=== PATIENT | female | born 1965 | race Two or more races ===

== ENCOUNTER 2023-06-14 19:35 | Inpatient (IN) | payer MEDICAID ==
[~2023-06-14] VITALS: Ht 152.4 cm; Wt 89.7 kg
[~2023-06-14 19:35] MED LIST: ALBUPOW26; ASPI-543 PO; ATEN50TA PO
[2023-06-14 20:10] VITALS: PULSE 53; RESP 15; O2SAT 99
[2023-06-14 20:15] LABS: Hematocrit 38.6 % (36.0-46.0); Hemoglobin 13.3 g/dL (12.2-16.2); Mean Corpuscular Hemoglobin 30.9 pg (28.0-32.0); Mean Corpuscular Hgb Conc. 34.5 g/dL (32.0-36.0); Mean Corpuscular Volume 89.6 fL (80.0-100.0); Red Cell Distribution Width 13.2 % (11.8-14.3); White Blood Cell 9.5 10^3/uL (4.4-10.8)
[2023-06-14 20:19] LABS: Band Neutrophils % (manual) 0; Basophils % (manual) 0 (0.0-2.0); Blast Cells 0; Metamyelocytes % 0; Myelocytes % 0; Promyelocytes % 0; Reactive Lymphocytes 0
[2023-06-14 20:35] LABS: Alanine Aminotransferase 104 U/L (7-40); Alkaline Phosphatase 101 U/L (46-116); Anion Gap 6 (5-15); Aspartate Aminotransferase 62 U/L (13-40); BUN/Creatinine Ratio 19.7 (10.0-20.0); Bilirubin, Total 0.3 mg/dL (0.2-1.0); Blood Urea Nitrogen 12 mg/dL (9-23); Calcium 9.3 mg/dL (8.7-10.4); Carbon Dioxide 25 mmol/L (20-30); Chloride 107 mmol/L (98-107); Glucose 140 mg/dL (74-106); Magnesium 1.9 mg/dL (1.6-2.6); Potassium 3.9 mmol/L (3.5-5.1); Sodium 138 mmol/L (136-145); Total Protein 6.2 g/dL (5.7-8.2)
[2023-06-14] MEDS ORDERED: diphenhdrAMINE HCL 50 MG/1 ML VL IV ONE (20:45)
[2023-06-14 22:03] LABS: Eosinophils % (manual) 16 (0-7); Lymphocytes % (manual) 28 (10.0-50.0); Monocytes % (manual) 8 (0-12); Platelet Estimate Adequate
[2023-06-14] MEDS ORDERED: ATROPINE SULF 0.5 MG/5ML SYR ONE (22:11)
[2023-06-14] MEDS: ATROPINE SULF 1 MG/10ml SYR IV ONE ×3 (22:13→23:07)
[2023-06-14] MEDS ORDERED: IOHEXOL 350 MG/ML 100ML IJ ONE (22:48)
[2023-06-15] VITALS (7 sets, daily range): BP systolic 120–145; BP diastolic 59–90; PULSE 53–65; RESP 18–20; TEMP 97.5–98.2; O2SAT 93–97
[2023-06-15] MEDS ORDERED: HYDROcodone-ACET 10/325MG TAB PO ONE (02:00)
[2023-06-15] MEDS ORDERED: HYDR-4798 PO (02:53)
[2023-06-15] MEDS ORDERED: NITROGLYCERIN 0.4 MG SL TAB SL PRN (03:15)
[2023-06-15] MEDS ORDERED: ONDANSETRON HCL 4 MG/2 ML VIAL IV PRN (03:15)
[2023-06-15] MEDS ORDERED: ACETAMINOPHEN 325 MG TAB PO PRN (03:15)
[2023-06-15 03:30] LABS: Urine Bacteria FEW /hpf (None Seen); Urine Blood Negative /uL (Negative); Urine Clarity Clear (Clear); Urine Color Colorless (Yellow); Urine Protein, UAD Negative (Negative); Urine Specific Gravity 1.035 (1.001-1.035); Urine Urobilinogen Normal (Negative); Urine WBC 1 /hpf (0 - 5)
[2023-06-15] MEDS ORDERED: METO-159 PO (05:40)
[2023-06-15] MEDS ORDERED: CLON0.1T PO (05:40)
[2023-06-15] MEDS ORDERED: LISI40TA16 PO (05:40)
[2023-06-15] MEDS: ASPirin 81 mg TAB PO SCH (09:56)
[2023-06-15] MEDS: LISINOPRIL 20 MG TAB PO SCH (09:56)
[2023-06-15] MEDS: PANTOPRAZOLE 40 MG TAB PO SCH (09:56)
[2023-06-15] MEDS: ENOXAPARIN SOD 40 MG/0.4 ML SYRINGE SC SCH (09:57)
[2023-06-15] MEDS ORDERED: amLODIPine BESYLATE 5 MG TAB PO ONE (11:00)
[2023-06-15] MEDS: DOXYCYCLINE 100 MG TAB/CAP PO SCH ×2 (15:29→21:03)
[2023-06-15] MEDS: HYDROcodone-ACET 10/325MG TAB PO PRN (15:30)
[2023-06-15] MEDS: DOCUSATE SOD 100 MG CAP PO SCH (21:03)
[2023-06-16 05:00] VITALS: BP 120/94; PULSE 63; RESP 18; TEMP 97.5; O2SAT 98
[2023-06-16 06:28] LABS: Alanine Aminotransferase 91 U/L (7-40); Albumin 4.2 g/dL (3.2-4.8); Alkaline Phosphatase 96 U/L (46-116); Anion Gap 8 (5-15); Aspartate Aminotransferase 38 U/L (13-40); BUN/Creatinine Ratio 17.2 (10.0-20.0); Bilirubin, Total 0.3 mg/dL (0.2-1.0); Blood Urea Nitrogen 11 mg/dL (9-23); Calcium 9.4 mg/dL (8.7-10.4); Carbon Dioxide 25 mmol/L (20-30); Chloride 107 mmol/L (98-107); Glucose 95 mg/dL (74-106); Potassium 3.6 mmol/L (3.5-5.1); Sodium 140 mmol/L (136-145); Total Protein 6.8 g/dL (5.7-8.2)
[2023-06-16 06:40] LABS: Basophils # (auto) 0.1 10 ^3/uL (0-0.2); Basophils % (auto) 0.4 % (0.0-2.0); Eosinophils # (auto) 0.3 10 ^3/uL (0-0.8); Eosinophils % (auto) 2.2 % (0.0-7.0); Hematocrit 40.2 % (36.0-46.0); Hemoglobin 13.7 g/dL (12.2-16.2); Lymphocytes # (auto) 3.3 10 ^3/uL (0.4-5.4); Lymphocytes % (auto) 21.2 % (10.0-50.0); Mean Corpuscular Hemoglobin 30.9 pg (28.0-32.0); Mean Corpuscular Volume 90.8 fL (80.0-100.0); Monocytes % (auto) 6.7 % (0.0-12.0); Neutrophils # (auto) 10.9 10 ^3/uL (1.6-8.6); Neutrophils % (auto) 69.5 % (37.0-80.0); Nucleated Red Blood Cells % 0.1 %; Red Blood Cells 4.43 10^6/uL (4.0-5.20); Red Cell Distribution Width 13.2 % (11.8-14.3); White Blood Cell 15.6 10^3/uL (4.4-10.8)
[2023-06-16 08:00] VITALS: PULSE 61
[2023-06-16 08:07] LABS: Free Thyroxine Index 1.8 (1.2-4.9); Thyroxine (T4) 6.8 ug/dL (4.5-12.0)
[2023-06-16] MEDS: DOCUSATE SOD 100 MG CAP PO SCH (08:18)
[2023-06-16] MEDS: HYDROcodone-ACET 10/325MG TAB PO PRN (08:19)
[2023-06-16 08:35] VITALS: BP 150/84; PULSE 65; RESP 20; TEMP 97.8; O2SAT 100
[2023-06-16] MEDS: ASPirin 81 mg TAB PO SCH (09:40)
[2023-06-16] MEDS: ENOXAPARIN SOD 40 MG/0.4 ML SYRINGE SC SCH (09:41)
[2023-06-16] MEDS: PANTOPRAZOLE 40 MG TAB PO SCH (09:42)
[2023-06-16] MEDS: DOXYCYCLINE 100 MG TAB/CAP PO SCH (09:42)
[2023-06-16] MEDS: LISINOPRIL 20 MG TAB PO SCH (09:42)
[2023-06-16] MEDS ORDERED: amLODIPine BESYLATE 5 MG TAB PO SCH ×2 (10:00)
[2023-06-16 12:39] VITALS: BP 140/93; PULSE 59; RESP 20; TEMP 98; O2SAT 98
[2023-06-16] MEDS ORDERED: POLY335015 PO (15:42)
[2023-06-16] MEDS ORDERED: AML5T PO (15:42)
[2023-06-16] MEDS ORDERED: DOX100T PO (15:42)
[2023-06-16] MEDS ORDERED: LACTULOSE 20Gm/30ML SOLN PO ONE (15:45)
[2023-06-16] MEDS ORDERED: METOCLOPRAMIDE HCL 5MG/ml INJ 2ml VIAL IV ONE (15:45)
[2023-06-16 16:26] VITALS: BP 155/89; TEMP 36.7
[2023-06-16 16:39] VITALS: BP 142/71; PULSE 62; RESP 19; TEMP 97.5; O2SAT 97
== END 2023-06-16 17:24 | disposition home or self-care (01) | DRG 201 ==
LOC: ER 19:37 → TELE 06-15 03:07 → TELE-WESTW 06-15 06:03
PROVIDERS: ADMIT Nurse Practitioner; ATTEND Nurse Practitioner Acute Care
DX: R00.1 Bradycardia, unspecified (principal); E03.9 Hypothyroidism, unspecified; T44.7X5A Adverse effect of beta-adrenoreceptor antagonists, initial encounter; E66.9 Obesity, unspecified; G89.4 Chronic pain syndrome; I10 Essential (primary) hypertension; J45.909 Unspecified asthma, uncomplicated; T36.8X5A Adverse effect of other systemic antibiotics, initial encounter; K59.00 Constipation, unspecified; Z88.0 Allergy status to penicillin; Z88.1 Allergy status to other antibiotic agents; Z88.2 Allergy status to sulfonamides; Z88.6 Allergy status to analgesic agent; Z68.38 Body mass index [BMI] 38.0-38.9, adult; Z79.899 Other long term (current) drug therapy; Z83.3 Family history of diabetes mellitus; Z88.8 Allergy status to other drugs, medicaments and biological substances; Y92.89 Other specified places as the place of occurrence of the external cause
CPT/HCPCS: 36415; 70450; 71045; 71275; 80053; 81001; 83735; 84443; 84484; 85007; 85025; 85027; 93005; 93306; 96374; G0378; J0461